=== PATIENT | female | born 1960 | race Caucasian/White ===

== ENCOUNTER → 2016-09-14 | Day surgery (SDC) | payer OTHER ==
[~2016-09-14] MED LIST: ACETAMINOPHEN 1000 MG/100 ML VIAL IV ONE; BACITRACIN IM FOR SOLN 50,000 UNIT VIAL ONE; BENZ100 PO; BUPIVACAINE/EPINEPHRINE 0.25% 50 ML VIAL ONE; BUPR150T3 PO; CLON1TAB PO; ESTR0.62 VAGINAL; GENTAMICIN SULFATE 80 MG/2 ML VIAL ONE; KETOROLAC TROMETHAMINE 30 MG/ML (IVP) VIAL ONE; LACTATED RINGER'S 1000 ML INJ 1,000 ML ONE; LEVO125T4 PO; LIDOCAINE 1%/EPINEPHrine 1:100,000 SOLN 20 ML VIAL ONE; LITH300C2 PO; MIDAZOLAM HCL 2 MG/2 ML VIAL ONE; MORPHINE SULFATE 4 MG/ML INJ ONE; ONDANSETRON HCL 4 MG/2 ML VIAL IV PUSH ONE; PROPOFOL 200 MG/20 ML AMP IV ONE; SODIUM CHLORIDE 0.9% 20 ML VIAL ONE; TRAZ50TA12 PO; VAGI10TA VAGINAL; ceFAZolin INJ 1,000 MG VIAL ONE
--- NOTE | 2016-09-14 12:48 | TN ---
cc: BEHZAD YEE M.D. DATE OF SURGERY 09/14/2016 PREOPERATIVE DIAGNOSIS Wishes for breast enhancement. POSTOPERATIVE DIAGNOSIS Wishes for breast enhancement. PROCEDURE Augmentation mammoplasty. SURGEON Behzad Yee MD ANESTHESIA LMA general. ESTIMATED BLOOD LOSS Minimal. COMPLICATIONS None. DRAINS None. IMPLANT DATA/TECHNIQUE AND PLACEMENT Cohesive gel SRF Allergan Natrelle Inspira 458 gels, inframammary, retropectoral. PROCEDURE IN DETAIL She was properly consented, marked, properly anesthetized, the skin sterilized with Betadine solution, sterile draping applied. Also applied a breast block. I utilized a total of 60 cc of 1% lidocaine with epinephrine mixed with 0.25% Marcaine in a 2:1 ratio. An inframammary incision about 4.5-5 cm was carried out utilizing a 15 blade, finding the retropectoral plane where the inferomedial fibers were released. Irrigation with antibiotic solution was carried out. Isolation of the NAC was done from the beginning and thereafter from the skin. After that, I assured meticulous hemostasis. Insertion of the implant was done in the retroperitoneal plane utilizing no-touch technique. The contralateral side was approached exactly in the same manner. With this I proceeded to perform the same procedure on the contralateral breast as previously described. The patient was sat up, blunt touch-up done to achieve best symmetry possible and the closure was done at this point after achieved that utilizing multiple layers of 2-0 Monocryl suture on the breast parenchyma, Kashmir's fascia, dermis and skin. Mastisol and Steri-Strips were applied, absorbent dressing and a snug brassiere. The viability of tissue was good at the end of the case. The patient was awakened, extubated in the operating room, transferred back to the postanesthesia care unit in stable condition. No complications appreciated. The patient tolerated the procedure fairly well. OF NOTE We also injected one syringe of 1 cc of L in the upper and lower lip, cheek area, nasolabial and marionette lines. MD YUMI Puga/MARYAM /11:41 AM 12:33 PM
== END | disposition home or self-care (01) ==
LOC: ESDC 10:02
PROVIDERS: ATTEND Plastic Surgery
DX: Z41.1 Encounter for cosmetic surgery (principal)
CPT/HCPCS: 00402; 19325; C1789; J0131; J0690; J1580; J1885; J2250; J2270; J2405; J3010; J7120